=== PATIENT | male | born 1965 | race Caucasian/White ===

== ENCOUNTER 2025-05-03 05:52 | Day surgery (SDC) | payer OTHER, SELFPAY ==
--- NOTE | 2025-01-31 10:45 | HPS.HSE ---
Family Physician
-
Family Physician: NOT KNOW UNKNOWN - PT DOES
Chief Complaint
-
Persistent atrial fibrillation.
History of Present Illness
The patient is a 59 year old male presenting today for persistent atrial fibrillation. The patient reports a history of fatigue and intermittent palpitations associated with this diagnosis. He previously underwent a LULU-guided
cardioversion in May 2024 for his arrhythmia. Unfortunately, he was noted to be back in atrial fibrillation at his routine cardiology visit with his primary dish cloth inspector, Dr. Hercules, in October 2024. He is on current pharmacological therapy
with Diltiazem. He would like to proceed with pulmonary vein isolation for more definitive arrhythmia management. His [id number] score is 0; however, he was started on Eliquis in December 2024 in preparation for his procedure. He does report strict
compliance with this medication. He denies any current complaints today such as chest pain, shortness of breath at rest, nausea, vomiting, diarrhea, lightheadedness, dizziness, cough, sore throat, or fever.
Medical History
Past Medical History
Past Medical History: Reports Other
Additional Past Medical History:
1. Persistent atrial fibrillation, status post LULU-guided cardioversion 05/2024; pharmacological therapy with Diltiazem and oral anticoagulation with Eliquis.
2. Chronic venous insufficiency.
3. Hemorrhoids.
Past Surgical History: Reports Other
Additional Past Surgical History:
1. LULU-guided cardioversion.
2. Left ankle fracture repair with hardware.
3. Right lower extremity venous ablation.
4. Bilateral inguinal hernia repair in childhood.
5. Tonsillectomy.
6. Dilation of esophagus.
Social History
Tobacco: Non-smoker
Alcohol: None
Personal:
Living: Other (He lives in a 2 story home with his . )
Family History
Family History: Not pertinent
Allergies / Home Medications
Allergy/Medication List:
Home medications:
1. Eliquis 5 mg p.o. twice a day.
2. Aspirin 81 mg p.o. daily.
3. Azelastine 2 sprays intranasal daily.
4. Diltiazem 120 mg p.o. at bedtime.
5. Elderberry 1 capsule p.o. at bedtime.
6. Garlique 1 capsule p.o. at bedtime.
7. Montelukast 10 mg p.o. at bedtime.
8. Multivitamin 1 tablet p.o. at bedtime.
9. Murdock 3 1 capsule p.o. at bedtime.
10. Red yeast rice 1 capsule p.o. at bedtime.
11. Vitamin K2 1 capsule p.o. at bedtime.
Allergies. Penicillin. Environmental.
Review of Systems
-
A 12 point ROS was completed and negative except as noted: Yes
Physical Exam
Vital Signs
Blood pressure 129/81. Heart rate 93. Respirations 18. Pulse ox 97% on room air.
Height 6 feet, 3 inches. Weight 98.2 kg. BMI 27.1.
Physical Exam
General: Well Developed, Well Nourished and No Apparent Distress
HEENT: NormoCephalic, Moist mucous membranes, Atraumatic and PERRLA
Respiratory: Clear
Cardiac: Irregular Rhythm
GI: Soft, Non Tender and Non Distended
Musculoskeletal: No Edema, Normal Gait & Station and Other (Venous stasis changes to bilateral lower extremities, right worse than left. )
Skin: Warm and Dry
Neuro: AO x 3 and Nonfocal/grossly intact
Laboratory Results
-
DIAGNOSTIC STUDIES as of 01/31/2025: White blood cell count 5.8. Hemoglobin 15.0. Platelet count 276,000. PT 14.1. INR 1.06. Sodium 140. Potassium 4.7. BUN 15. Creatinine 1.0. Glucose 100. Calcium 9.4. Magnesium 2.2. AST 37. ALT 36. Albumin 4.5.
Type and screen B positive.
EKG 01/31/2025: Atrial fibrillation.
Chest CT 01/31/2025: Short segment common vestibule for the left superior and inferior pulmonary veins, fairly commonly seen and considered normal variant. No evidence for left atrial thrombus.
Impression/Plan
-
IMPRESSION/PLAN:
1. Persistent atrial fibrillation: The patient is in need of pulmonary vein isolation with Dr. Geovanny Negro on 02/17/2025. The benefits and risks of the procedure have been explained to the patient. The patient understands these risks and wishes to
proceed. He will not be required to undergo a pre-procedural transesophageal echocardiogram as he has been compliant with his home oral anticoagulation. He is aware to continue his Eliquis uninterrupted prior to his procedure. He will take no
medications the morning of his ablation.
[2025-01-31 11:43] LABS: Hematocrit 43.4 % (39.0-52.0); Hemoglobin 15.0 g/dL (13.0-18.0); Mean Corp Hgb Conc. 34.6 g/dL (33.0-37.0); Mean Corpuscular Volume 89.1 fL (80.0-94.0); Nucleated Red Blood Cells % 0 % (-); Platelet Count 276 10^3/uL (130-400); Red Cell Dist. Width 11.9 % (11.5-14.5)
[2025-01-31 11:44] LABS: INR 1.06; PT 14.1 Sec (11.4-14.6)
[2025-01-31 12:01] LABS: ALT (SGPT) 36 U/L (0-50); AST (SGOT) 37 U/L (17-59); Albumin 4.5 g/dl (3.5-5.0); Alkaline Phosphatase 76 U/L (38-126); Blood Urea Nitrogen 15 mg/dl (9-20); Calcium 9.4 mg/dl (8.4-10.2); Carbon Dioxide 29 mmol/L (22-30); Chloride 106 mmol/L (98-107); Glucose 100 mg/dl (70-99); Magnesium 2.2 mg/dl (1.6-2.3); Potassium 4.7 mmol/L (3.5-5.1); Sodium 140 mmol/L (135-145); Total Protein 6.9 g/dl (6.3-8.2); eGFR > 60.00
[2025-01-31 13:46] VITALS: BMI 27.1
[2025-04-11 08:58] VITALS: BMI 27.4
[2025-04-11 09:30] LABS: Hematocrit 43.7 % (39.0-52.0); Hemoglobin 15.3 g/dL (13.0-18.0); Mean Corp Hgb Conc. 35.0 g/dL (33.0-37.0); Mean Corpuscular Volume 87.6 fL (80.0-94.0); Nucleated Red Blood Cells % 0 % (-); Platelet Count 270 10^3/uL (130-400); Red Cell Dist. Width 12.1 % (11.5-14.5)
--- NOTE | 2025-04-11 09:35 | HPS.HSE ---
Family Physician
-
Family Physician: NOT KNOW UNKNOWN - PT DOES
Chief Complaint
-
Persistent atrial fibrillation.
History of Present Illness
The patient is a 59 year old male presenting today for persistent atrial fibrillation. The patient reports a history of fatigue and intermittent palpitations associated with this diagnosis. He previously underwent a LULU-guided
cardioversion in May 2024 for his arrhythmia. Unfortunately, he was noted to be back in atrial fibrillation at his routine cardiology visit with his primary rehab tech, Dr. Hercules, in October 2024. He currently maintained on Diltiazem. He
would like to proceed with pulmonary vein isolation for more definitive arrhythmia management. His [id number] score is 0; however, he was started on Eliquis in December 2024 in preparation for his procedure. He does report strict compliance with this
medication. He denies any current complaints today such as chest pain, shortness of breath at rest, nausea, vomiting, diarrhea, lightheadedness, dizziness, cough, sore throat, or fever.
Medical History
Past Medical History
Past Medical History: Reports Other (see below)
Additional Past Medical History:
1. Persistent atrial fibrillation, status post LULU-guided cardioversion 05/2024; pharmacological therapy with Diltiazem and oral anticoagulation with Eliquis.
2. Chronic venous insufficiency.
Past Surgical History: Reports Other (see below)
Additional Past Surgical History:
1. LULU-guided cardioversion.
2. Left ankle fracture repair with hardware.
3. Right lower extremity venous ablation.
4. Bilateral inguinal hernia repair in childhood.
5. Tonsillectomy.
6. Dilation of esophagus.
Social History
Tobacco: Non-smoker
Alcohol: None
Family History
Family History: Not pertinent
Allergies / Home Medications
Allergies reflects when Allergies were last updated in [facility].
Home Medications with original date entered in [facility]
Allergy/Medication List:
Home medications:
1. Eliquis 5 mg p.o. twice a day.
2. Aspirin 81 mg p.o. daily.
3. Azelastine 2 sprays intranasal daily.
4. Diltiazem 120 mg p.o. at bedtime.
5. Elderberry 1 capsule p.o. at bedtime.
6. Garlique 1 capsule p.o. at bedtime.
7. Montelukast 10 mg p.o. at bedtime.
8. Multivitamin 1 tablet p.o. at bedtime.
9. [place] 3 1 capsule p.o. at bedtime.
10. Red yeast rice 1 capsule p.o. at bedtime.
11. Vitamin K2 1 capsule p.o. at bedtime.
Allergies. Penicillin. Environmental.
Review of Systems
-
A 12 point ROS was completed and negative except as noted: Yes
Physical Exam
Vital Signs
139/90 HR 99 O2 sat 99
Physical Exam
General: Well Developed and Well Nourished
HEENT: NormoCephalic
Respiratory: Clear and Non Labored Respirations
Cardiac: Irregular Rhythm
GI: Soft, Non Tender and Normal Bowel Sounds
Musculoskeletal: Edema, Right Lower Extremity (mild edema >left)
Laboratory Results
-
04/11/25 09:06
Laboratory Results
PT 14.1 Sec (11.4-14.6) 01/31/25 10:17
INR 1.06 01/31/25 10:17
Total Bilirubin 1.0 mg/dl (0.2-1.3) 01/31/25 10:17
AST 37 U/L (17-59) 01/31/25 10:17
ALT 36 U/L (0-50) 01/31/25 10:17
Alkaline Phosphatase 76 U/L (38-126) 01/31/25 10:17
Impression/Plan
-
IMPRESSION/PLAN:
1. Persistent atrial fibrillation: The patient is in need of pulmonary vein isolation with Dr. Geovanny Negro on 02/17/2025. The benefits and risks of the procedure have been explained to the patient. The patient understands these risks and wishes to
proceed. He will not be required to undergo a pre-procedural transesophageal echocardiogram as he has been compliant with his home oral anticoagulation. He is aware to continue his Eliquis uninterrupted prior to his procedure. He will take no
medications the morning of his ablation.
[2025-04-11 09:41] LABS: INR 1.01; PT 13.7 Sec (11.4-14.6)
[2025-04-11 10:08] LABS: ALT (SGPT) 35 U/L (0-50); AST (SGOT) 35 U/L (17-59); Albumin 4.6 g/dl (3.5-5.0); Alkaline Phosphatase 75 U/L (38-126); Blood Urea Nitrogen 14 mg/dl (9-20); Calcium 9.4 mg/dl (8.4-10.2); Carbon Dioxide 29 mmol/L (22-30); Chloride 102 mmol/L (98-107); Estimated Creatinine Clearance 94 ml/min; Glucose 104 mg/dl (70-99); Magnesium 2.0 mg/dl (1.6-2.3); Potassium 4.5 mmol/L (3.5-5.1); Sodium 136 mmol/L (135-145); Total Protein 7.1 g/dl (6.3-8.2); eGFR > 60.00
[2025-05-03] VITALS (13 sets, daily range): BP systolic 97–154; BP diastolic 63–104; BMI 27.5
[2025-05-03 08:59] LABS: ACT-LR - POC 236 Seconds (116-155)
--- NOTE | 2025-05-03 09:27 | ITS.CL.ABL ---
[facility] - Ablation
Ablation
Procedure Report:
ELECTROPHYSIOLOGY ABLATION STUDY
DATE:: May 03, 2025�����������������������������REFERRING: Dr. Guy/Dr. Tate Hercules
INDICATION: Persistent supraventricular tachycardia in the form of atrial fibrillation
HISTORY: See H and P.��As above
ANTIARRHYTHMIC DRUG: Diltiazem
PRE-PROCEDURE LULU: No atrial thrombus
PRESENTING RHYTHM: Atrial fibrillation
'TIME-OUT':��called and confirmed.
SEDATION/ANESTHESIA:��provided via the anesthesia department using general anesthesia (LMA).
INTRAVENOUS/ARTERIAL ACCESS:
Right femoral venous -8Fr
Left femoral venous - 8 Fr, 6 Fr
Ultrasound guidance for bilateral femoral vein access was utilized by me to obtain access with demonstration of normal anatomy
CHADS-VASC Score:
HAS-Bled Score
PROCEDURE:
1.��A decapolar CS catheter was placed within the CS for mapping and pacing.��This was also used as the reference catheter for the 3-D map.
2. The intracardiac ultrasound catheter was positioned in the RA to identify the FO for targeting of transseptal puncture, assist��in identification of the pulmonary vein ostia, monitoring pre and post ablation pulmonary vein flow velocities,
monitoring for 'bubble' formation during RF application as a sign of thermal injury,��and to monitor for pericardial effusion during mapping and ablation procedure.���Left atrial size, LV ejection fraction, and pulmonary vein flows were monitored
pre and post ablation procedure. The other valves were inspected and found to be free of significant regurgitation or stenosis.
3.��Half of the calculated heparin bolus was administered prior to the first transeptal puncture.��Transseptal puncture was performed to diagnose RA and LA pressure so that safety of LA mapping and ablation could be further assessed, and to access
the left atrium and pulmonary veins for mapping and ablation.��This entailed advancing an 16.8 Setswana RF wire, sheath with dilator into the superior vena cava and withdrawing both (monitoring intracardiac ultrasound, fluoroscopy and tip pressure)
with the tip oriented toward the atrial septum.��The fossa ovalis was engaged (indicated by sudden displacement of the sheath tip as well as tenting of the fossa seen on intracardiac ultrasound).��Left atrial access required a pass with the
Brockenbrough needle extended.��Left atrial catheter position was confirmed by pressure monitoring (RA mean pressure 2 mm Hg and LA mean presure 8 mm Hg after 750 cc of hydration 10 mmHg), LA saturation (99%),��as well as fluoroscopy.��The sheath
was advanced over the dilator and positioned in the left atrium.��This procedure was repeated for the Agilis sheath.��The remainder of the calculated heparin bolus was administered and heparin was
infused to maintain ACT at 300 -350 seconds throughout the case.
4.��RA pacing was performed via the proximal decapolar poles and LA pacing was performed via the distal decapolr poles.
5. A quadrapolar catheter was first positioned at the His position for His Bundle recording which was tagged via the 3-D Navex sytem, and then passed to the RVA for RV pacing and recording.
6. 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
7.��Next, a 3-D map was created using Navex.���A 3-D reconstructed CT image was compared to the 3-D Navex map to assist in anatomic interpretation, mapping and ablation.��The CT image and the NavX image were fused.
8. 53 lesions were given in olive basket and flower poses. All of in basket poses to each of the 4 pulmonary veins which rendered each of the 4 pulmonary veins isolated with entrance block. Atrial fibrillation persisted. And flower pose the
anomalous pulmonary vein that was coming off the roof was addressed and isolated with entrance block. Fluoroscopy post was given to the remainder of the roof posterior wall and floor of the left atrium rendering the roof posterior wall and floor of
the TRINO with entrance block. Atrial fibrillation persisted and the patient was cardioverted to sinus rhythm and entrance and exit block was confirmed in all 5 pulmonary veins and the posterior wall. There was isolated firing noted in the left
superior and left inferior pulmonary veins at the end the procedure.
9. Normal sinus node and AV node function noted.
TOTAL FLOURO TIME: 10.8 minutes
TOTAL RF DURATION: 0 minutes
REVERSAL OF HEPARIN: 35 mg of protamine, slow IV administration
COMPLICATIONS:
None
Intracardiac US shows no pericardial effusion post ablation.
SUMMARY:��
Complex left atrial mapping and ablation.
Entrance and exit block in all 5 pulmonary veins as well as the roof posterior wall and floor of the left atrium.
RECOMMENDATIONS:
1. Ambulate in 4 hours
2. Resume anticoagulation
3.��Consider same-day discharge
4.��Continue oral anticoagulant in 3 months and diltiazem for 1 to 3 months
Copy to: Dr. Eddy [facility] cardiology, Dr. Tate Hercules
--- NOTE | 2025-05-03 13:52 | W.PN.UPDATE ---
Update Note
Progress Note Update
60 yo WM s/p PVI (same day). He denies cp, sob, federica diet, voiding, EKG SR 1deg AVB, groins c/d/i no HT< soft. He will resume Eliquis tonight and continue diltiazem. Activity restrictions reviewed. He will f/u Dr. Eddy in 3mo. He is for d/c
home after 2pm.
== END 2025-05-03 14:30 | disposition home or self-care (01) ==
LOC: CATH 05:52
PROVIDERS: ATTENDING PHYSICIAN Internal Medicine Cardiovascular Disease; FAMILY PHYSICIAN Internal Medicine
DX: I48.19 Other persistent atrial fibrillation (principal); I44.0 Atrioventricular block, first degree; I45.10 Unspecified right bundle-branch block; I47.10 Supraventricular tachycardia, unspecified; I87.2 Venous insufficiency (chronic) (peripheral); Z79.01 Long term (current) use of anticoagulants; Z79.82 Long term (current) use of aspirin; Z79.899 Other long term (current) drug therapy; Z87.19 Personal history of other diseases of the digestive system; Z88.0 Allergy status to penicillin; Z90.89 Acquired absence of other organs
CPT/HCPCS: C1732; C1894; C1730; C1733; C1769; C1766; C1892; C1759; 36415; 75572; 80053; 83735; 85025; 85347; 85610; 86850; 86900; 86901; 93005; 93656; 93657; Q9967